=== PATIENT | male | born 1950 | race Caucasian/White ===

== ENCOUNTER 2024-10-31 09:10 | Outpatient (OUT) | payer OTHER, SELFPAY ==
--- NOTE | 2024-10-31 09:25 | CT_ITS ---
The [address] [address] Patient Name: MARITZA MILES MRN: [id number] date: 1950 Sex: M Assigned Patient Location: CT Current Patient Location: CT Accession/Order Number: [id number] Exam Date: 10/31/2024 14:07 Report Date: 10/31/2024 14:11 At the request of: SERENE BLUE MD Procedure: CT abdomen pelvis wo con CT ABDOMEN AND PELVIS WITHOUT INTRAVENOUS CONTRAST: CLINICAL HISTORY: BPH With Obstruction, Lower Urinary Tract Symptoms COMPARISON: None TECHNIQUE: Spiral images were obtained through the abdomen and pelvis without intravenous contrast. This CT exam was performed using one or more following dose reduction techniques: Automated exposure control, adjustment of the mA and/or kV according to patient size, or use of iterative reconstruction technique. FINDINGS: Lung Bases: [Mild bibasilar scarring.] Organs:Suboptimal evaluation due to lack of IV contrast. Liver gallbladder spleen and adrenal glands all appear unremarkable. Evidence of chronic pancreatitis. Kidneys demonstrate no stone or hydronephrosis. Abdominal aorta appears normal in caliber.[ GI: Stomach is grossly unremarkable. Small bowel appears nondilated. Appendix is normal. No acute colonic abnormality.[ Pelvis:[Two Urinary bladder calculi are identified largest measuring 2.9 cm.] Prostate gland is normal in size. Peritoneum/Retroperitoneum:No free air or free fluid or lymphadenopathy.[ Abd wall/Bones:Abdominal wall demonstrate no acute findings.[Osseous structures demonstrate degenerative change. CT/CT abdomen pelvis wo con IMPRESSION: No acute findings. Urinary bladder calculi. Evidence of chronic pancreatitis. Impression dictated by: Pranav Serrato Jr., D.O. 10/31/2024 2:11 PM Dictation Location: [place] [address] Electronically authenticated by: [id number] Y Date: 10/31/2024 14:11
== END 2024-10-31 09:11 | disposition home or self-care (01) ==
LOC: CT 09:16
PROVIDERS: Visit Provider Urology
DX: N40.1 Benign prostatic hyperplasia with lower urinary tract symptoms (principal); K86.1 Other chronic pancreatitis
CPT/HCPCS: 74176

== ENCOUNTER 2024-12-20 10:43 | Outpatient (OUT) | payer OTHER, SELFPAY ==
--- NOTE | 2024-12-20 10:46 | ECG_ITS ---
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 Measurements Intervals [place] Rate: 66 P: 24 OK: 208 QRS: 35 QRSD: 133 T: 37 QT: 383 QTc: 403 Interpretive Statements SINUS RHYTHM RIGHT BUNDLE BRANCH BLOCK [120+ ms QRS DURATION, UPRIGHT V1, 40+ ms S IN I/aVL/V4/V5/V6] Abnormal ECG No previous ECG available for comparison Electronically Signed On 12-20-2024 11:49:13 EDT by CECE LUCIANO M.D.
[2024-12-20 11:54] LABS: Hematocrit 37.8 % (42.0-54.0); Hemoglobin 12.3 g/dL (14.0-18.0); Immature Granulocytes Abs Auto 0.01 10^3/uL (0.00-0.03); Immature Granulocytes Pct Auto 0.2 % (0.0-0.5); Lymphocytes Absolute Auto 1.1 10^3/uL (1.2-3.8); Mean Corpuscular HGB Conc 32.5 g/dL (29.9-35.2); Mean Corpuscular Hemoglobin 30.6 pg (25.9-34.0); Mean Corpuscular Volume 94.0 fL (80.0-94.0); Platelet Count 244 10^3/uL (150-450); Red Blood Count 4.02 10^6/uL (4.70-6.10); White Blood Count 5.5 10^3/uL (4.0-11.0)
[2024-12-20 12:02] LABS: Anion Gap 15.2; Blood Urea Nitrogen 20.0 mg/dL (7.0-18.0); Calcium 9.5 mg/dL (8.5-10.1); Carbon Dioxide 28.1 mmol/L (21.0-32.0); Chloride 103 mmol/L (98-107); Estimated GFR (African America >60 (>=60 mL/min/1.73m^2); Estimated GFR (Non-African Ame >60 (>=60 mL/min/1.73m^2); Glucose 160 mg/dL (74-106); Potassium 4.3 mmol/L (3.5-5.1); Sodium 142 mmol/L (136-145)
[2024-12-20 12:26] LABS: INR 1.00; Partial Thromboplastin Time 25.9 sec (22.3-36.2); Prothrombin Time 10.6 sec (9.0-11.6)
== END 2024-12-20 10:44 | disposition home or self-care (01) ==
LOC: PST 10:43
PROVIDERS: Visit Provider Urology
DX: Z01.810 Encounter for preprocedural cardiovascular examination (principal); Z01.812 Encounter for preprocedural laboratory examination; N21.0 Calculus in bladder
CPT/HCPCS: 36415; 80048; 85025; 85610; 85730; 93005

== ENCOUNTER 2025-01-03 06:42 | Day surgery (SDC) | payer OTHER, SELFPAY ==
[2024-12-20 11:13] VITALS: BP 122/74; PULSE 80; TEMP 36.5; O2SAT 99; BMI 26.8
[2025-01-03] VITALS (12 sets, daily range): BP systolic 94–121; BP diastolic 58–80; PULSE 64–85; TEMP 36.1–36.2; O2SAT 91–99; BMI 26.7
--- OUTSIDE RECORDS SUMMARY | 2025-01-03 06:45 | XMS_ITS | Clinical Summary ---
Author Organization [facility] Address [address] [facility] [place] [address] Care Team Providers Care Recovery Advocate Name Role Phone Unavailable Primary Care Provider Unavailabl e Allergies No known active allergies Medications metFORMIN XR (Glucophage-XR) 500 MG 24 hr tablet Active Active Problems No known active problems Encounters Date Type Department Care Team Description 10/24/2024 Telephone [facility] [address] [facility] [address] [place] [id number] Suzette Tamayo LPN Cancelled Mohs from Last 3 Months Social History Tobacco Use Types Packs/Day Years Used Date Smoking Tobacco: Never Smokeless Tobacco: Never Tobacco Cessation:Counseling Given: Not Answered Sex and Gender Information Value Date Recorded Sex Assigned at Not on file Legal Sex Male 9:16 AM EDT Gender Identity Not on file Sexual Orientation Not on file Plan of Treatment Not on file Insurance [address] [place] [address] [employer]
--- OUTSIDE RECORDS SUMMARY | 2025-01-03 06:45 | XMS_ITS | Encounter Summary ---
Author Organization [facility] Address [address] [place] [address] Care Team Providers Care Budget Engineer Name Role Phone Unavailable Primary Care Provider Unavailabl e Encounter Details Date Type Department Care Team (Latest Contact Info) Description 08/29/2024 Results Follow-Up [facility] [place] [facility] [address] [place] [address] Zenaida Comer PA [address] [place] [address] Dermatopathology exam Social History Tobacco Use Types Packs/Day Years Used Date Smoking Tobacco: Never Smokeless Tobacco: Never Sex and Gender Information Value Date Recorded Sex Assigned at Not on file Legal Sex Male 9:16 AM EDT Gender Identity Not on file Sexual Orientation Not on file documented as of this encounter Plan of Treatment Not on file documented as of this encounter Visit Diagnoses Not on filedocumented in this encounter
[2025-01-03] MEDS: CEFAZOLIN SODIUM 2 GM/50 ML D5W PREMIX IV (08:07)
--- NOTE | 2025-01-03 09:52 | PM.URSON ---
Urology Surgery Operative Note Operative Note Procedure Date: 01/03/25 Time Out Performed: yes Pre-op Diagnosis: 1. Bladder calculi. 2. Urethral meatal stenosis Post-op Diagnosis: same as pre-op Procedures performed: 1. Urethral meatal dilation to 24 [place] with Peralta sounds #2. Cystoscopy laser litholapaxy of large bladder calculi greater than 4 cm Anesthesia: General-LMA Primary Surgeon: Phillip Jalloh Complications: None Estimated blood loss (mL): 5 Findings: Extremely large bladder calculus approximately 3-1/2 to 4 cm and an adjacent calculus approximately 1-1/2 cm Specimens: Bladder calculus fragments Drains: 20 [place] Pablo catheter in the bladder Indications for Procedures: This gentleman has BPH and large bladder calculi. CT scan suggested 2, 2.9 cm stones. He now presents for cystoscopy litholapaxy. He has signed an informed consent after risks were explained. Detailed description of Procedure: The patient was brought to the operating room and placed on the operating room table in the supine position. SCDs were placed on the lower extremities and turned on and functioning during the entire case. Timeout was done by all parties in the room. We all agreed upon the patient's identification and the planned procedures for this patient. Genn. anesthesia was then administered. The patient was then repositioned into the modified dorsal lithotomy position. All pressure points were satisfactorily padded. Genitalia were sterilely prepped and draped in usual fashion. I started by dilating his urethral meatus with Peralta sounds up to 24 [place]er. I then passed a 22 [place] Olympus cystoscope per urethra and into the bladder. The rest of the urethra was normal. Prostatic urethra revealed trilobar obstruction. As soon as I was up on top of the median lobe I could see the extremely large bladder calculi. I then passed a 1000 Angstrom laser fiber through the scope and began using the thulium laser initially at 40 W and ultimately increased up to 100 W. A modifier will be done for this procedure due to the massive amount of lasering required. I lasered for over 1 hour straight. Both of the stones were fully fragmented. The Elick evacuator was used several times to clear out the dust and fragments. Upon completion, there was no evidence of stone remaining in the bladder. The ureteral orifices were patent and effluxing clear urine. The prostatic urethra was oozing a tiny bit just from the scope resting upon it during the procedure. The scope was then removed. I then passed a 20 [place] two-way Pablo catheter into the bladder. It was manually irrigated to verify correct placement. 10 cc of fluid was placed in the balloon. It drained clear to pink. The patient was then transferred to a [facility] bed and wheeled to PACU in stable condition.
--- NOTE | 2025-01-03 13:15 | PC.NURSE ---
PINK TINGED URINE
== END 2025-01-03 11:27 | disposition home or self-care (01) ==
LOC: SURGOUT 06:42
PROVIDERS: Visit Provider Urology
PROC: (CPT 52318; principal; 2025-01-03 08:00)
DX: N21.0 Calculus in bladder (principal); E11.9 Type 2 diabetes mellitus without complications; N35.911 Unspecified urethral stricture, male, meatal; N40.0 Benign prostatic hyperplasia without lower urinary tract symptoms; Z87.442 Personal history of urinary calculi; H54.7 Unspecified visual loss; Z79.84 Long term (current) use of oral hypoglycemic drugs; M19.90 Unspecified osteoarthritis, unspecified site
CPT/HCPCS: 52318; 36415; 82365; 82948; 99999; J0131; J0690; J1100; J1885; J2371; J2405; J2704; J3010